=== PATIENT | male | born 1980 | race African-American/Black ===

== ENCOUNTER 2017-05-17 07:58 | Emergency (ER) | payer SELFPAY ==
[2017-05-17] MEDS ORDERED: IBUPROFEN 800 MG TABLET PO ONE (08:15)
--- NOTE | 2017-05-17 08:20 | ER Document Report ---
HPI - HPI Patient complains to provider of: fever Onset: Other - 3 days Onset/Duration: Persistent Quality of pain: Achy Pain Level: 3 Context: Patient presents complaining of nausea and vomiting that occurred 2 days ago but has since resolved. Patient reports subjective fever with hot and cold chills over the past 2 days. Patient denies any cough, congestion, sore throat or ear pain. Patient denies any abdominal pain, vomiting, diarrhea, or urinary symptoms. Patient states that he has had back pain over the past 2 days but that is resolved this morning. Patient without any complaints today except for subjective fever. Patient has not had any Tylenol or ibuprofen since yesterday. Associated Symptoms: Fever. denies: Body/muscle aches, Chest pain, Productive cough, Headache, Vomiting, Rhinnorhea, Sore throat Exacerbated by: Denies Relieved by: Denies Similar symptoms previously: No Recently seen / treated by doctor: No - ROS ROS below otherwise negative: Yes Notes: Reviewed patient's medication list, patient is not currently on any medicines. Systems Reviewed and Negative: Yes All other systems reviewed and negative - CONSTITUTIONAL Constitutional: REPORTS: Fever, Chills - EENT EENT: DENIES: Sore Throat, Congestion - NEURO Neurology: DENIES: Headache - CARDIOVASCULAR Cardiovascular: DENIES: Chest pain - RESPIRATORY Respiratory: DENIES: Trouble Breathing, Coughing - GASTROINTESTINAL Gastrointestinal: DENIES: Abdominal Pain, Nausea, Patient vomiting, Diarrhea - URINARY Urinary: DENIES: Dysuria - MUSCULOSKELETAL Musculoskeletal: DENIES: Extremity pain, Back Pain, Neck Pain - DERM Skin Color: Normal Past Medical History - General Information source: Patient - Social History Smoking Status: Never Smoker Frequency of alcohol use: None Drug Abuse: Marijuana Occupation: [employer] service Family History: Reviewed & Not Pertinent Renal/ Medical History: Denies: Hx Peritoneal Dialysis Musculoskeltal Medical History: Reports Other - back pain Surgical Hx: Negative Vertical Provider Document - CONSTITUTIONAL Agree With Documented VS: Yes Exam Limitations: No Limitations General Appearance: WD/WN, No Apparent Distress - INFECTION CONTROL TRAVEL OUTSIDE OF THE [place] IN LAST 30 DAYS: No - HEENT HEENT: Atraumatic, Normocephalic - NECK Neck: Normal Inspection, Supple. negative: Lymphadenopathy-Left, Lymphadenopathy-Right - RESPIRATORY Respiratory: Breath Sounds Normal, No Respiratory Distress O2 Sat by Pulse Oximetry: 96 - CARDIOVASCULAR Cardiovascular: Regular Rate, Regular Rhythm, No Murmur - GI/ABDOMEN Gastrointestinal: Abdomen Soft - BACK Back: Normal Inspection. negative: CVA Tenderness-Right, CVA Tenderness-Left - MUSCULOSKELETAL/EXTREMETIES Musculoskeletal/Extremeties: EMELIA BAILEY - NEURO Level of Consciousness: Awake, Alert, Appropriate Motor/Sensory: No Motor Deficit - DERM Integumentary: Warm, Dry, No Rash Course - Re-evaluation Re-evalutation: 05/17/17 08:16 The patient has been informed that they may have pre-hypertension or hypertension based on a blood pressure reading in the emergency department. I recommend that patient call the primary care provider listed on their discharge instructions or a physician of their choice by this week to arrange follow-up for further evaluation of possible pre-hypertension or hypertension. Discussed plan of care with patient, to treat patient symptomatically as he does not have any complaints aside from fever. Patient concerned that he may have some kind of problem with his kidneys or in his body would like lab tests performed. Patient advised that without any focal symptoms at this time aside from subjective fever that lab tests are necessary. Patient is concerned and requesting it be performed. 05/17/17 09:41 Patient is requesting not to have any additional blood work drawn for his second blood culture. Discussed plan of care with patient in reason for performing the test as he was concerned about a possible blood infection. Patient now agreeable for blood draw. Patient states he would like to be discharged now. Discussed results of patient's test with him including his leukocytosis as well as hematuria. Patient denies any back pain denies any penile drainage or discharge or concern for STD. Patient encouraged to follow- up with her primary care provider to recheck his urinalysis and for follow-up regarding today's visit. Patient advised to return immediately for any new or worsening symptoms. Patient verbalized understanding and agrees with plan of care. 05/17/17 09:[address] Mirza regarding patient presentation, reviewed patient's diagnostics, agrees with discharge plan of care. - Vital Signs Vital signs: Temp Pulse Resp BP Pulse Ox 99.3 F 85 18 143/85 H 96 05/17/17 08:01 05/17/17 08:01 05/17/17 08:01 05/17/17 08:01 05/17/17 08:01 - Laboratory Result Diagrams: 05/17/17 08:50 05/17/17 08:50 Laboratory results interpreted by me: 05/17/17 09:41 Labs- Entire Visit 05/17/17 05/17/17 05/17/17 08:30 08:50 08:50 WBC 10.8 H RBC 4.75 Hgb 15.1 Hct 43.7 MCV 92 MCH 31.7 MCHC 34.5 RDW 13.5 Plt Count 266 Seg Neutrophils % 77.1 Lymphocytes % 10.6 L Monocytes % 11.7 Eosinophils % 0.2 Basophils % 0.4 Absolute Neutrophils 8.3 H Absolute Lymphocytes 1.1 Absolute Monocytes 1.3 Absolute Eosinophils 0.0 Absolute Basophils 0.0 Sodium 139.2 Potassium 4.5 Chloride 105 Carbon Dioxide 24 Anion Gap 10 BUN 11 Creatinine 0.76 Est GFR ( Amer) > 60 Est GFR (Non-Af Amer) > 60 Glucose 100 Calcium 10.1 Urine Color YELLOW Urine Appearance CLEAR Urine pH 7.0 Ur Specific [place] 1.023 Urine Protein 30 H Urine Glucose (UA) NEGATIVE Urine Ketones NEGATIVE Urine Blood MODERATE H Urine Nitrite NEGATIVE Urine Bilirubin NEGATIVE Urine Urobilinogen 2.0 H Ur Leukocyte Esterase NEGATIVE Urine WBC (Auto) 2 Urine RBC (Auto) 41 Squamous Epi Cells Auto <1 Urine Mucus (Auto) OCC Urine Ascorbic Acid NEGATIVE 05/17/17 09:42 Discharge - Discharge Clinical Impression: Chills, Elevated blood pressure reading Fatigue Qualifiers: Fatigue type: unspecified Qualified Code(s): R53.83 - Other fatigue Hematuria Qualifiers: Hematuria type: unspecified type Qualified Code(s): R31.9 - Hematuria, unspecified Condition: Stable Disposition: HOME, SELF-CARE Instructions: Acetaminophen, Viral Syndrome ([facility]), Use of [id number] Ibuprofen ([facility]), Hematuria ([facility]), Leukocytosis ([facility]) Additional Instructions: Return immediately for any new or worsening symptoms Followup with your primary care provider, call tomorrow to make a followup appointment Cultures are pending, we will call if you need any different treatment. Follow-up with a primary doctor to recheck your urinalysis as it showed some red blood cells in the urine today. Prescriptions: Naproxen [Naprosyn 250 Nmg Tablet] 1 tab PO BID #14 tablet Forms: Elevated Blood Pressure Referrals: [facility] [Provider Group] - Follow up as needed [facility] [Provider Group] - Follow up tomorrow
[2017-05-17 08:52] LABS: APPEARANCE,URINE CLEAR; BILIRUBIN,URINE NEGATIVE (NEGATIVE); GLUCOSE, URINE NEGATIVE (NEGATIVE); KETONES,URINE NEGATIVE (NEGATIVE); LEUKOCYTE ESTERASE,URINE NEGATIVE (NEGATIVE); NITRITE,URINE NEGATIVE (NEGATIVE); PROTEIN,URINE 30 mg/dL (NEGATIVE); URINE SPECIFIC GRAVITY 1.023
[2017-05-17 09:08] LABS: ABSOLUTE LYMPHOCYTES (AUTO) 1.1 10^3/uL (0.5-4.7); ABSOLUTE MONOCYTES (AUTO) 1.3 10^3/uL (0.1-1.4); ABSOLUTE NEUT (AUTO) 8.3 10^3/uL (1.7-8.2); BASOPHILS % (AUTO) 0.4 % (0-2); EOSINOPHILS % (AUTO) 0.2 % (0-6); HEMATOCRIT 43.7 % (37.9-51.0); HEMOGLOBIN 15.1 g/dL (13.5-17.0); HGB HCT DIFFERENCE 1.6; LYMPHOCYTES % (AUTO) 10.6 % (13-45); MEAN CORPUSCULAR HEMOGLOBIN 31.7 pg (27.0-33.4); MEAN CORPUSCULAR HGB CONC 34.5 g/dL (32.0-36.0); MEAN CORPUSCULAR VOLUME 92 fl (80-97); MONOCYTES % (AUTO) 11.7 % (3-13); RED BLOOD COUNT 4.75 10^6/uL (4.35-5.55); RED CELL DISTRIBUTION WIDTH 13.5 % (11.5-14.0); SEGMENTED NEUTROPHILS % (AUTO) 77.1 % (42-78); WHITE BLOOD COUNT 10.8 10^3/uL (4.0-10.5)
[2017-05-17 09:16] LABS: ANION GAP 10 (5-19); BLOOD UREA NITROGEN 11 mg/dL (7-20); CALCIUM 10.1 mg/dL (8.4-10.2); CARBON DIOXIDE 24 mmol/L (22-30); CHLORIDE 105 mmol/L (98-107); CREATININE RESULT 0.76 mg/dL (0.52-1.25); GLUCOSE 100 mg/dL (75-110); POTASSIUM 4.5 mmol/L (3.6-5.0); SODIUM 139.2 mmol/L (137-145)
[2017-05-17 11:34] VITALS: BP 147/92
[2017-05-17 12:52] LABS: CHLAM PCR NOT DETECTED (NOT DETECT)
== END 2017-05-17 11:26 | disposition home or self-care (01) ==
LOC: ER 07:58
DX: R68.83 Chills (without fever) (principal); R03.0 Elevated blood-pressure reading, without diagnosis of hypertension; R53.83 Other fatigue; R31.9 Hematuria, unspecified; D72.829 Elevated white blood cell count, unspecified
CPT/HCPCS: 36415; 80048; 81001; 85025; 87040; 87075; 87077; 87086; 87491; 87591; 99283